=== PATIENT | male | born 1975 | race Caucasian/White ===

== ENCOUNTER 2018-05-24 23:43 | Emergency (ER) | payer SELFPAY ==
[~2018-05-24] VITALS: Ht 170.2 cm; Wt 80.0 kg
[2018-05-25 00:12] VITALS: BP 141/84
== END 2018-05-25 01:30 | disposition left against medical advice (07) ==
LOC: ER 23:43
DX: Z53.21 Procedure and treatment not carried out due to patient leaving prior to being seen by health care provider (principal)